=== PATIENT | female | born 1975 | race Caucasian/White ===

== ENCOUNTER 2016-08-30 10:28 | Emergency (ER) | payer BC, OTHER ==
[2016-08-30 11:25] LABS: ABSOLUTE NEUTROPHIL COUNT 4.2 K/mm3 (1.8-7.7); BASO % 0.6 % (0.2-1.0); EOS # 0.6 (0.0-0.5); EOS % 8.8 % (0.9-2.9); HEMATOCRIT 38.1 % (37.0-47.0); HEMOGLOBIN 12.4 gm/l (12.0-16.0); IMM NEUT% 0.3 % (0-1); LYMPH # 1.5 (1.0-4.8); LYMPH % 22.6 % (15-45); MEAN CELL VOLUME 89.4 fl (81.0-99.0); MEAN CORPUSCULAR HEMOGLOBIN 29.1 pg (27.0-31.0); MEAN CORPUSCULAR HGB CONC 32.5 g/dl (33.0-37.0); MEAN PLATELET VOLUME 9.6 fl (7.4-10.4); MONO # 0.4 (0.0-0.8); MONO % 5.5 % (4-12); NEUT % 62.2 % (43-75); PLATELET COUNT 334 K/mm3 (130-400); RED CELL DISTRIBUTION WIDTH 12.6 % (11.5-14.5)
[2016-08-30 11:42] LABS: ALB/GLOB RATIO 1.3 (>1.0); ALBUMIN 3.8 gm/dL (3.5-5.7); ALT/SGPT 16 U/L (7-52); BLOOD UREA NITROGEN 12 mg/dL (7-25); BUN/CREATININE RATIO 9 (6-20); C-REACTIVE PROTEIN < 0.3 mg/dl (<1.0); CALCIUM 8.6 mg/dL (8.6-10.3); GLOMERULAR FILTRATION RATE 45 mL/min (60-99)
== END 2016-08-30 13:02 | disposition home or self-care (01) ==
LOC: ED 10:28
DX: R21 Rash and other nonspecific skin eruption (principal); Z87.891 Personal history of nicotine dependence